=== PATIENT | male | born 1965 | race African-American/Black ===

== ENCOUNTER 2022-04-11 08:34 | Emergency (ER) | payer OTHER ==
[~2022-04-11] VITALS: Ht 180.3 cm; Wt 81.8 kg
[~2022-04-11 08:34] MED LIST: NOCURR
[2022-04-11 08:53] VITALS: BP 152/86
[2022-04-11] MEDS: IBUPROFEN 600 MG TABLET PO ONE (09:25)
[2022-04-11] MEDS ORDERED: IBUP-1492 PO (09:28)
== END 2022-04-11 09:42 | disposition home or self-care (01) ==
LOC: EMS 08:45
DX: M77.12 Lateral epicondylitis, left elbow (principal); F17.210 Nicotine dependence, cigarettes, uncomplicated
CPT/HCPCS: 99282; Z7502; Z7610

== ENCOUNTER 2023-10-03 17:28 | Emergency (ER) | payer OTHER ==
[~2023-10-03] VITALS: Ht 180.3 cm; Wt 83.2 kg
[~2023-10-03 17:28] MED LIST changes: +IBUP-1492 PO; -NOCURR
[2023-10-03 17:32] VITALS: BP 133/72; PULSE 85; RESP 19; TEMP 98.4
[2023-10-03] MEDS ORDERED: SULF-261 PO (19:09)
[2023-10-03] MEDS ORDERED: CEPH-558 PO (19:09)
[2023-10-03] MEDS: CefTRIAXone SODIUM 1 GM/VIAL IM ONE (19:18)
[2023-10-03] MEDS: LIDOCAINE/PF 1% 2 ML VIAL IM ONE (19:19)
== END 2023-10-03 19:36 | disposition home or self-care (01) ==
LOC: EMS 17:35
DX: H60.11 Cellulitis of right external ear (principal); F17.210 Nicotine dependence, cigarettes, uncomplicated
CPT/HCPCS: 99283; 96372; J0696; J3490